=== PATIENT | female | born 1945 | race African-American/Black ===

== ENCOUNTER 2017-07-17 20:20 | Observation (INO) ==
[2017-07-17 21:31] LABS: Basophils # 0.1 10*3/uL (0.0-0.2); Basophils % 1.1 % (0.0-0.8); Eosinophils # 0.4 10*3/uL (0.0-0.87); Eosinophils % 3.4 % (0.00-10.9); Hematocrit 31.7 VOL% (35.7-47.0); Hemoglobin 10.4 GM/DL (12.0-16.0); Immature Granulocytes % 0.4 %; Immature Granulocytes Absolute 0.04 #; Lymphocytes # 2.5 10*3/uL (1.4-4.0); Lymphocytes % 24.4 % (21.3-54.2); Mean Corpuscular HGB Conc 32.8 GM/DL (32-36); Mean Corpuscular Hemoglobin 28 PG (27-34); Mean Corpuscular Volume 84.8 FL (87-102); Mean Platelet Volume 10.4 FL (9.6-12.0); Monocytes # 0.5 10*3/uL (0.11-0.8); Monocytes % 5.2 % (1.7-12.7); Neutrophils # 6.8 10*3/uL (1.4-7.4); Neutrophils % 65.5 % (38.7-73.9); Platelet Count 300 T/CUMM (130-400); Red Blood Count 3.74 MC/CUMM (3.8-5.5); Red Cell Distribution Width 13.9 % (9.3-17.3); White Blood Count 10.3 T/CUMM (4-12)
[2017-07-17 21:40] LABS: Apearance,Urine Slightly Hazy (Clear); Bacteria,Urine Occasional /HPF (Few); Bilirubin,Urine Negative (Negative); Blood, Urine Negative (Negative); Glucose,Urine (UA) Negative (Negative); Hyaline Casts,Urine 2 /LPF (0-3); Ketones,Urine Negative (Negative); Mucus,Urine Occasional /LPF (Occasional); Nitrite,Urine Negative (Negative); Protein,Urine 100 MG/DL; RBC,Urine 1 /HPF (0-4); Squamous Epithelial Cell,Urine Occasional /HPF (0-10); Urine Color Yellow (Yellow); Urine Specific Gravity 1.016 (1.001-1.035); Urine Urobilinogen < 2.0 EU/DL (0.2-1.0); WBC,Urine 1 /HPF (0-6)
[2017-07-17 22:14] LABS: Alanine Aminotransferase 37 U/L (13-56); Albumin 3.5 G/DL (3.4-5.0); Alkaline Phosphatase 69 U/L (45-117); Aspartate Amino Transferase 36 U/L (0-37); Blood Urea Nitrogen 13 MG/DL (7-18); Calcium 8.7 MG/DL (8.5-10.1); Glucose 116 MG/DL (74-106); Osmolality,Calculated 281.3 MOS/KG (273-304); Potassium 3.6 MMOL/L (3.5-5.1); Sodium 141 MMOL/L (136-145); Total Protein 7.6 G/DL (6.4-8.3)
[2017-07-17 22:16] LABS: Troponin I Only 0.302 NG/ML (0.00-0.045)
[2017-07-17] MEDS ORDERED: FUROSEMIDE 40 MG/4 ML VIAL IV STA (22:33)
[2017-07-17] MEDS ORDERED: FUROSEMIDE 100 MG/10 ML VIAL ONE (22:46)
[2017-07-18] MEDS ORDERED: DEXTROSE 50% 25 GM/50 ML VIAL IV PRN ×2 (00:59→18:40)
[2017-07-18] MEDS ORDERED: ONDANSETRON 4 MG/2 ML VIAL IV PRN (00:59)
[2017-07-18] MEDS ORDERED: GLUCAGON 1 MG VIAL IM PRN ×2 (00:59→18:40)
[2017-07-18] MEDS ORDERED: ACETAMINOPHEN 325 MG TABLET PO PRN (00:59)
[2017-07-18] MEDS: ENOXAPARIN 40 MG/0.4 ML SYRINGE SUBCUT SCH (02:40)
[2017-07-18 03:07] LABS: Calcium 8.6 MG/DL (8.5-10.1); Magnesium 1.6 MG/DL (1.8-2.4); Osmolality,Calculated 280.3 MOS/KG (273-304); Potassium 3.3 MMOL/L (3.5-5.1)
[2017-07-18 04:49] LABS: Basophils # 0.1 10*3/uL (0.0-0.2); Basophils % 0.9 % (0.0-0.8); Eosinophils # 0.3 10*3/uL (0.0-0.87); Eosinophils % 2.7 % (0.00-10.9); Hematocrit 30.1 VOL% (35.7-47.0); Hemoglobin 10.2 GM/DL (12.0-16.0); Immature Granulocytes % 0.4 %; Immature Granulocytes Absolute 0.04 #; Lymphocytes # 2.5 10*3/uL (1.4-4.0); Lymphocytes % 26.6 % (21.3-54.2); Mean Corpuscular HGB Conc 33.9 GM/DL (32-36); Mean Corpuscular Hemoglobin 28 PG (27-34); Mean Corpuscular Volume 83.4 FL (87-102); Mean Platelet Volume 11.1 FL (9.6-12.0); Monocytes # 0.5 10*3/uL (0.11-0.8); Monocytes % 5.4 % (1.7-12.7); Platelet Count 290 T/CUMM (130-400); Red Blood Count 3.61 MC/CUMM (3.8-5.5); Red Cell Distribution Width 13.8 % (9.3-17.3); White Blood Count 9.4 T/CUMM (4-12)
[2017-07-18 06:08] LABS: Sedimentation Rate-Westergren 57 MM/HR (0-30)
[2017-07-18 06:11] LABS: Folate > 24.0 NG/ML (5.4-24.0); Vitamin B12 590 PG/ML (211-911)
[2017-07-18 07:40] LABS: Hemoglobin A1 (Alkaline) 97.7 % (96.5-98.5); Hemoglobin A2 (Alkaline) 2.3 % (1.5-3.5)
[2017-07-18] MEDS ORDERED: ENOXAPARIN 40 MG/0.4 ML SYRINGE ONE (08:34)
[2017-07-18] MEDS ORDERED: POTASSIUM CHLORIDE 20 MEQ TABLET PO ONE ×2 (08:34→08:43)
[2017-07-18] MEDS ORDERED: FUROSEMIDE 40 MG/4 ML VIAL ONE (08:34)
[2017-07-18] MEDS ORDERED: ASPIRIN CHEW 81 MG TABLET PO ONE (08:34)
[2017-07-18] MEDS ORDERED: amLODIPine 5 MG TABLET ONE (08:35)
[2017-07-18] MEDS ORDERED: MAGNESIUM SULF RIDER 4 GM in PREMIX 1 EACH IV ONE (08:44)
[2017-07-18] MEDS ORDERED: metFORMIN 850 MG TABLET PO SCH (09:00)
[2017-07-18] MEDS: ASPIRIN EC 81 MG TABLET PO SCH (09:10)
[2017-07-18] MEDS: POTASSIUM CHLORIDE 20 MEQ TABLET PO SCH (09:11)
[2017-07-18] MEDS: amLODIPine 10 MG TABLET PO SCH (09:11)
[2017-07-18] MEDS: sitaGLIPtin 100 MG TABLET PO SCH (09:16)
[2017-07-18] MEDS: QUINAPRIL 20 MG TABLET PO SCH (09:16)
[2017-07-18] MEDS: FUROSEMIDE 40 MG/4 ML VIAL IV SCH ×2 (09:45→16:11)
[2017-07-18] MEDS: INSULIN LISPRO 100 UNIT/ML SUBCUT SCH ×4 (11:17→20:49)
[2017-07-18 11:41] LABS: % Iron Saturation 7.1 % (18-50)
[2017-07-18] MEDS ORDERED: diphenhydrAMINE CAP 25 MG CAPSULE PO ONE (12:07)
[2017-07-18] MEDS ORDERED: DIAZEPAM 5 MG TABLET PO ONE (12:07)
[2017-07-18] MEDS ORDERED: POTASSIUM CHLORIDE RIDER 10 MEQ in PREMIX 1 EACH IV PRN (12:07)
[2017-07-18] MEDS ORDERED: MAGNESIUM SULF RIDER 2 GM in PREMIX 1 EACH IV PRN (12:07)
[2017-07-18] MEDS ORDERED: SODIUM CHLORIDE 0.9% 1,000 ML IV SCH (12:30)
[2017-07-18 15:14] LABS: PT Patient Result 10.6 SECS
[2017-07-18] MEDS ORDERED: LIDOCAINE 1% 20 ML VIAL ONE (17:12)
[2017-07-18] MEDS ORDERED: VERAPAMIL 5 MG/2 ML VIAL ONE (17:12)
[2017-07-18] MEDS ORDERED: NITROGLYCERIN DRIP 50 MG/250 ML BOTTLE IV ONE (17:12)
[2017-07-18] MEDS ORDERED: MIDAZOLAM 2 MG/2 ML VIAL ONE (17:33)
[2017-07-18] MEDS ORDERED: ENOXAPARIN 30 MG/0.3 ML SYRINGE ONE (17:42)
[2017-07-18] MEDS: DEXTROSE 5% NACL 0.45% 1,000 ML IV SCH (18:06)
[2017-07-18] MEDS: CARVEDILOL 3.125 MG TABLET PO SCH (20:48)
[2017-07-18] MEDS ORDERED: ATORVASTATIN 10 MG TABLET PO SCH (21:00)
[2017-07-19] MEDS: ENOXAPARIN 40 MG/0.4 ML SYRINGE SUBCUT SCH (02:13)
[2017-07-19 06:32] LABS: Basophils # 0.1 10*3/uL (0.0-0.2); Eosinophils # 0.5 10*3/uL (0.0-0.87); Eosinophils % 7.1 % (0.00-10.9); Hematocrit 30.4 VOL% (35.7-47.0); Immature Granulocytes % 0.3 %; Immature Granulocytes Absolute 0.02 #; Lymphocytes # 2.4 10*3/uL (1.4-4.0); Lymphocytes % 33.2 % (21.3-54.2); Mean Corpuscular HGB Conc 32.9 GM/DL (32-36); Mean Corpuscular Hemoglobin 28 PG (27-34); Mean Corpuscular Volume 84.2 FL (87-102); Monocytes # 0.6 10*3/uL (0.11-0.8); Monocytes % 7.9 % (1.7-12.7); Neutrophils # 3.7 10*3/uL (1.4-7.4); Neutrophils % 50.5 % (38.7-73.9); Platelet Count 291 T/CUMM (130-400); Red Blood Count 3.61 MC/CUMM (3.8-5.5); Red Cell Distribution Width 13.9 % (9.3-17.3); White Blood Count 7.4 T/CUMM (4-12)
[2017-07-19 07:14] LABS: Calcium 8.3 MG/DL (8.5-10.1); Magnesium 2.5 MG/DL (1.8-2.4); Osmolality,Calculated 277.5 MOS/KG (273-304); Potassium 3.7 MMOL/L (3.5-5.1)
[2017-07-19 07:27] LABS: Risk Ratio 2.54; VLDL CHOLESTEROL 21.6 MG/DL
[2017-07-19] MEDS: POTASSIUM CHLORIDE 20 MEQ TABLET PO SCH (08:46)
[2017-07-19] MEDS: CARVEDILOL 3.125 MG TABLET PO SCH (08:47)
[2017-07-19] MEDS: ASPIRIN EC 81 MG TABLET PO SCH (08:47)
[2017-07-19] MEDS: sitaGLIPtin 100 MG TABLET PO SCH (08:47)
[2017-07-19] MEDS: FUROSEMIDE 40 MG/4 ML VIAL IV SCH (08:47)
[2017-07-19] MEDS: INSULIN LISPRO 100 UNIT/ML SUBCUT SCH ×2 (08:47→11:50)
[2017-07-19] MEDS: amLODIPine 10 MG TABLET PO SCH (08:47)
[2017-07-19] MEDS: QUINAPRIL 20 MG TABLET PO SCH (08:47)
[2017-07-19] MEDS: DEXTROSE 5% NACL 0.45% 1,000 ML IV SCH (08:48)
[2017-07-19 12:19] VITALS: BP 130/48
[2017-07-19] MEDS ORDERED: FUROSEMIDE 40 MG TABLET PO SCH (16:00)
== END 2017-07-19 16:42 | disposition home or self-care (01) ==
LOC: N.EDINP 20:20 → N.ED 20:20 → SUATTDRO 07-18 00:45 → N.EDINP 07-18 13:48 → N.5E 07-18 13:52
PROVIDERS: ADMIT Internal Medicine; ATTEND Internal Medicine
PROC: CLCCHCL (ICD-10-PCS; 2017-07-18 16:45)

== ENCOUNTER 2017-12-11 18:41 | Inpatient (IN) ==
[2017-12-11 20:22] LABS: Basophils # 0.1 10*3/uL (0.0-0.2); Basophils % 0.9 % (0.0-0.8); Eosinophils # 0.6 10*3/uL (0.0-0.87); Eosinophils % 6.6 % (0.00-10.9); Hematocrit 32.4 VOL% (35.7-47.0); Hemoglobin 10.3 GM/DL (12.0-16.0); Immature Granulocytes % 0.5 %; Immature Granulocytes Absolute 0.04 #; Lymphocytes # 1.2 10*3/uL (1.4-4.0); Mean Corpuscular HGB Conc 31.8 GM/DL (32-36); Mean Corpuscular Hemoglobin 27 PG (27-34); Mean Corpuscular Volume 84.2 FL (87-102); Mean Platelet Volume 10.9 FL (9.6-12.0); Monocytes # 0.5 10*3/uL (0.11-0.8); Monocytes % 5.9 % (1.7-12.7); Neutrophils # 6.1 10*3/uL (1.4-7.4); Neutrophils % 72.1 % (38.7-73.9); Platelet Count 281 T/CUMM (130-400); Red Blood Count 3.85 MC/CUMM (3.8-5.5); Red Cell Distribution Width 14.9 % (9.3-17.3); White Blood Count 8.5 T/CUMM (4-12)
[2017-12-11 20:49] LABS: Albumin 3.8 G/DL (3.4-5.0); Bilirubin,Total 0.9 MG/DL (0.2-1.0); Calcium 8.4 MG/DL (8.5-10.1); Osmolality,Calculated 286.1 MOS/KG (273-304); Potassium 4.1 MMOL/L (3.5-5.1); Total Protein 7.1 G/DL (6.4-8.3)
[2017-12-11 20:51] LABS: Troponin I Only 0.418 NG/ML (0.00-0.045)
[2017-12-11] MEDS ORDERED: ASPIRIN EC 325 MG TABLET PO STA (21:53)
[2017-12-11] MEDS ORDERED: FUROSEMIDE 40 MG/4 ML VIAL IV STA (21:53)
[2017-12-11] MEDS ORDERED: FUROSEMIDE 20 MG/2 ML VIAL ONE (22:00)
[2017-12-11] MEDS ORDERED: ASPIRIN 325 MG TABLET ONE (22:00)
[2017-12-12] MEDS ORDERED: MORPHINE 2 MG/1 ML SYRINGE IV PRN (02:37)
[2017-12-12] MEDS ORDERED: ONDANSETRON 4 MG/2 ML VIAL IV PRN (02:37)
[2017-12-12] MEDS ORDERED: DEXTROSE 50% 25 GM/50 ML VIAL IV PRN (02:37)
[2017-12-12] MEDS ORDERED: GLUCAGON 1 MG VIAL IM PRN (02:37)
[2017-12-12] MEDS ORDERED: ACETAMINOPHEN 325 MG TABLET PO PRN (02:37)
[2017-12-12 05:54] LABS: Basophils # 0.1 10*3/uL (0.0-0.2); Basophils % 0.9 % (0.0-0.8); Eosinophils # 0.6 10*3/uL (0.0-0.87); Hematocrit 31.4 VOL% (35.7-47.0); Hemoglobin 9.9 GM/DL (12.0-16.0); Immature Granulocytes % 0.4 %; Immature Granulocytes Absolute 0.03 #; Lymphocytes # 1.2 10*3/uL (1.4-4.0); Lymphocytes % 15.1 % (21.3-54.2); Mean Corpuscular HGB Conc 31.5 GM/DL (32-36); Mean Corpuscular Hemoglobin 26 PG (27-34); Mean Corpuscular Volume 83.5 FL (87-102); Mean Platelet Volume 11.2 FL (9.6-12.0); Monocytes # 0.6 10*3/uL (0.11-0.8); Neutrophils # 5.6 10*3/uL (1.4-7.4); Neutrophils % 69.6 % (38.7-73.9); Platelet Count 269 T/CUMM (130-400); Red Blood Count 3.76 MC/CUMM (3.8-5.5); Red Cell Distribution Width 14.8 % (9.3-17.3); White Blood Count 8.1 T/CUMM (4-12)
[2017-12-12 06:40] LABS: Calcium 8.9 MG/DL (8.5-10.1); Osmolality,Calculated 281.3 MOS/KG (273-304)
[2017-12-12] MEDS: INSULIN LISPRO 100 UNIT/ML SUBCUT SCH ×4 (08:05→21:40)
[2017-12-12] MEDS: FUROSEMIDE 40 MG/4 ML VIAL IV SCH ×2 (08:33→17:35)
[2017-12-12] MEDS: PANTOPRAZOLE 40 MG TABLET PO SCH (08:33)
[2017-12-12] MEDS: ENOXAPARIN 40 MG/0.4 ML SYRINGE SUBCUT SCH (08:33)
[2017-12-12] MEDS: SPIRONOLACTONE 50 MG TABLET PO SCH (15:07)
[2017-12-12] MEDS: ASCORBIC ACID 500 MG TABLET PO SCH ×2 (15:07→21:41)
[2017-12-12] MEDS ORDERED: FUROSEMIDE 20 MG/2 ML VIAL ONE (17:06)
[2017-12-12] MEDS ORDERED: ATORVASTATIN 10 MG TABLET PO SCH (21:00)
[2017-12-12] MEDS: CARVEDILOL 6.25 MG TABLET PO SCH (21:40)
[2017-12-13 05:28] LABS: Basophils # 0.1 10*3/uL (0.0-0.2); Basophils % 0.9 % (0.0-0.8); Eosinophils # 0.4 10*3/uL (0.0-0.87); Eosinophils % 7.3 % (0.00-10.9); Hematocrit 30.8 VOL% (35.7-47.0); Hemoglobin 10.3 GM/DL (12.0-16.0); Immature Granulocytes % 0.5 %; Immature Granulocytes Absolute 0.03 #; Lymphocytes # 1.1 10*3/uL (1.4-4.0); Lymphocytes % 18.5 % (21.3-54.2); Mean Corpuscular HGB Conc 33.4 GM/DL (32-36); Mean Corpuscular Hemoglobin 27 PG (27-34); Mean Platelet Volume 11.4 FL (9.6-12.0); Monocytes # 0.6 10*3/uL (0.11-0.8); Neutrophils # 3.6 10*3/uL (1.4-7.4); Neutrophils % 62.8 % (38.7-73.9); Platelet Count 273 T/CUMM (130-400); Red Blood Count 3.85 MC/CUMM (3.8-5.5); Red Cell Distribution Width 14.9 % (9.3-17.3); White Blood Count 5.8 T/CUMM (4-12)
[2017-12-13 06:03] LABS: Calcium 8.8 MG/DL (8.5-10.1); Osmolality,Calculated 280.5 MOS/KG (273-304)
[2017-12-13] MEDS: INSULIN LISPRO 100 UNIT/ML SUBCUT SCH ×2 (07:15→13:04)
[2017-12-13] MEDS ORDERED: POTASSIUM CHLORIDE 20 MEQ TABLET PO SCH (09:00)
[2017-12-13] MEDS ORDERED: ASPIRIN EC 81 MG TABLET PO SCH (09:00)
[2017-12-13] MEDS ORDERED: QUINAPRIL 20 MG TABLET PO SCH (09:00)
[2017-12-13] MEDS: PANTOPRAZOLE 40 MG TABLET PO SCH (09:27)
[2017-12-13] MEDS: SPIRONOLACTONE 50 MG TABLET PO SCH (09:27)
[2017-12-13] MEDS: FUROSEMIDE 40 MG/4 ML VIAL IV SCH (09:27)
[2017-12-13] MEDS: ASCORBIC ACID 500 MG TABLET PO SCH (09:27)
[2017-12-13] MEDS: CARVEDILOL 6.25 MG TABLET PO SCH (09:27)
[2017-12-13] MEDS: ENOXAPARIN 40 MG/0.4 ML SYRINGE SUBCUT SCH (09:27)
[2017-12-13 14:26] VITALS: BP 105/73
== END 2017-12-13 14:44 | disposition home or self-care (01) | DRG 293 ==
LOC: N.ED 18:41 → N.EDINP 12-12 02:34 → N.CC 12-12 03:13
PROVIDERS: ADMIT Internal Medicine; ATTEND Internal Medicine

== ENCOUNTER 2018-01-22 08:32 | Inpatient (IN) ==
[2018-01-22 10:58] LABS: Basophils # 0.1 10*3/uL (0.0-0.2); Basophils % 1.5 % (0.0-0.8); Eosinophils # 0.4 10*3/uL (0.0-0.87); Eosinophils % 7.5 % (0.00-10.9); Hematocrit 35.9 VOL% (35.7-47.0); Immature Granulocytes % 0.9 %; Immature Granulocytes Absolute 0.05 #; Lymphocytes # 1.5 10*3/uL (1.4-4.0); Lymphocytes % 28.2 % (21.3-54.2); Mean Corpuscular HGB Conc 30.6 GM/DL (32-36); Mean Corpuscular Hemoglobin 26 PG (27-34); Mean Corpuscular Volume 85.5 FL (87-102); Mean Platelet Volume 10.3 FL (9.6-12.0); Monocytes # 0.4 10*3/uL (0.11-0.8); Neutrophils % 54.9 % (38.7-73.9); Platelet Count 276 T/CUMM (130-400); Red Cell Distribution Width 15.7 % (9.3-17.3); White Blood Count 5.5 T/CUMM (4-12)
[2018-01-22 11:52] LABS: Alanine Aminotransferase 28 U/L (13-56); Albumin 3.5 G/DL (3.4-5.0); Alkaline Phosphatase 76 U/L (45-117); Aspartate Amino Transferase 32 U/L (0-37); Bilirubin,Total < 0.39 MG/DL (0.2-1.0); Blood Urea Nitrogen 10 MG/DL (7-18); Calcium 8.9 MG/DL (8.5-10.1); Glucose 90 MG/DL (74-106); Osmolality,Calculated 273.7 MOS/KG (273-304); Sodium 138 MMOL/L (136-145); Total Protein 7.7 G/DL (6.4-8.3)
[2018-01-22 11:53] LABS: Potassium 7.8 MMOL/L (3.5-5.1)
[2018-01-22 12:01] LABS: Apearance,Urine CLEAR (Clear); Bacteria,Urine Occasional /HPF (Few); Bilirubin,Urine Negative (Negative); Blood, Urine Negative (Negative); Glucose,Urine (UA) Negative (Negative); Hyaline Casts,Urine 15 /LPF (0-3); Ketones,Urine Negative (Negative); Mucus,Urine Occasional /LPF (Occasional); Nitrite,Urine Negative (Negative); Protein,Urine Negative; RBC,Urine <1 /HPF (0-4); Squamous Epithelial Cell,Urine Occasional /HPF (0-10); Urine Color Yellow (Yellow); Urine Specific Gravity 1.013 (1.001-1.035); Urine Urobilinogen < 2.0 EU/DL (0.2-1.0); WBC,Urine 1 /HPF (0-6)
[2018-01-22 12:18] LABS: Troponin I Only 0.189 NG/ML (0.00-0.045)
[2018-01-22] MEDS ORDERED: DEXTROSE 50% 25 GM/50 ML VIAL IV STA (12:51)
[2018-01-22] MEDS ORDERED: INSULIN REGULAR 100 UNIT/ML IV STA (12:51)
[2018-01-22] MEDS ORDERED: DEXTROSE 50% 25 GM/50 ML VIAL IV ONE (13:02)
[2018-01-22] MEDS ORDERED: INSULIN REGULAR 100 UNIT/ML ONE (13:04)
[2018-01-22] MEDS ORDERED: CALCIUM GLUCONATE 1,000 MG in SODIUM CHLORIDE 0.9% 100 ML IV ONE ×2 (13:09→15:00)
[2018-01-22] MEDS ORDERED: ONDANSETRON 4 MG/2 ML VIAL IV PRN (13:22)
[2018-01-22] MEDS ORDERED: ACETAMINOPHEN 325 MG TABLET PO PRN (13:22)
[2018-01-22] MEDS ORDERED: GLUCAGON 1 MG VIAL IM PRN (13:25)
[2018-01-22] MEDS: ENOXAPARIN 40 MG/0.4 ML SYRINGE SUBCUT SCH (16:36)
[2018-01-22] MEDS: FUROSEMIDE 40 MG TABLET PO SCH (16:36)
[2018-01-22] MEDS: INSULIN LISPRO 100 UNIT/ML SUBCUT SCH ×2 (16:44→21:28)
[2018-01-22 18:20] LABS: Calcium 9.1 MG/DL (8.5-10.1); Osmolality,Calculated 270.8 MOS/KG (273-304)
[2018-01-22 18:22] LABS: Potassium 7.4 MMOL/L (3.5-5.1)
[2018-01-22] MEDS: ATORVASTATIN 20 MG TABLET PO SCH (21:51)
[2018-01-22] MEDS: ASCORBIC ACID 500 MG TABLET PO SCH (21:51)
[2018-01-22] MEDS: CARVEDILOL 6.25 MG TABLET PO SCH (21:51)
[2018-01-23 05:37] LABS: Calcium 8.6 MG/DL (8.5-10.1); Osmolality,Calculated 275.7 MOS/KG (273-304)
[2018-01-23 05:40] LABS: Potassium 6.9 MMOL/L (3.5-5.1)
[2018-01-23] MEDS: FUROSEMIDE 40 MG TABLET PO SCH ×2 (08:43→16:35)
[2018-01-23] MEDS: CARVEDILOL 6.25 MG TABLET PO SCH ×2 (08:43→16:36)
[2018-01-23] MEDS: ASCORBIC ACID 500 MG TABLET PO SCH ×2 (08:43→20:55)
[2018-01-23] MEDS: ASPIRIN EC 81 MG TABLET PO SCH (08:43)
[2018-01-23] MEDS: SODIUM POLYSTYRENE SULFATE 15 GM/60 ML BOTTLE PO SCH ×3 (08:43→20:55)
[2018-01-23] MEDS: INSULIN LISPRO 100 UNIT/ML SUBCUT SCH ×4 (08:46→22:51)
[2018-01-23] MEDS: ENOXAPARIN 40 MG/0.4 ML SYRINGE SUBCUT SCH (16:36)
[2018-01-23 16:45] LABS: Calcium 8.5 MG/DL (8.5-10.1); Osmolality,Calculated 275.8 MOS/KG (273-304)
[2018-01-23 16:47] LABS: Potassium 6.1 MMOL/L (3.5-5.1)
[2018-01-23] MEDS: ATORVASTATIN 20 MG TABLET PO SCH (20:55)
[2018-01-24] MEDS: SODIUM POLYSTYRENE SULFATE 15 GM/60 ML BOTTLE PO SCH ×3 (00:31→15:16)
[2018-01-24 05:23] LABS: Calcium 8.7 MG/DL (8.5-10.1); Osmolality,Calculated 278.7 MOS/KG (273-304); Potassium 5.7 MMOL/L (3.5-5.1)
[2018-01-24] MEDS: INSULIN LISPRO 100 UNIT/ML SUBCUT SCH ×2 (09:39→12:00)
[2018-01-24] MEDS: FUROSEMIDE 40 MG TABLET PO SCH (09:49)
[2018-01-24] MEDS: CARVEDILOL 6.25 MG TABLET PO SCH (09:49)
[2018-01-24] MEDS: ASCORBIC ACID 500 MG TABLET PO SCH (09:49)
[2018-01-24] MEDS: ASPIRIN EC 81 MG TABLET PO SCH (09:49)
[2018-01-24 11:43] VITALS: BP 114/71
[2018-01-24 13:39] LABS: Calcium 8.8 MG/DL (8.5-10.1); Osmolality,Calculated 274.8 MOS/KG (273-304); Potassium 5.1 MMOL/L (3.5-5.1)
[2018-01-24] MEDS: ENOXAPARIN 40 MG/0.4 ML SYRINGE SUBCUT SCH (15:17)
== END 2018-01-24 16:16 | disposition home or self-care (01) | DRG 641 ==
LOC: N.ED 08:32 → N.EDINP 12:14 → N.TELES 13:52
PROVIDERS: ADMIT Internal Medicine; ATTEND Internal Medicine

== ENCOUNTER 2018-03-21 18:41 | Inpatient (IN) ==
[2018-03-21] MEDS ORDERED: ETOMIDATE 20 MG/10 ML VIAL IV ONE (18:52)
[2018-03-21] MEDS ORDERED: ROCURONIUM 100 MG/10 ML VIAL IV ONE (18:53)
[2018-03-21] MEDS ORDERED: ROCURONIUM 100 MG/10 ML VIAL IV STA (18:58)
[2018-03-21] MEDS ORDERED: ETOMIDATE 20 MG/10 ML VIAL IV STA (18:58)
[2018-03-21 19:09] LABS: Basophils # 0.1 10*3/uL (0.0-0.2); Basophils % 1.1 % (0.0-0.8); Eosinophils # 0.3 10*3/uL (0.0-0.87); Eosinophils % 3.2 % (0.00-10.9); Hematocrit 35.5 VOL% (35.7-47.0); Hemoglobin 11.1 GM/DL (12.0-16.0); Immature Granulocytes % 0.6 %; Immature Granulocytes Absolute 0.06 #; Lymphocytes # 4.5 10*3/uL (1.4-4.0); Lymphocytes % 43.3 % (21.3-54.2); Mean Corpuscular HGB Conc 31.3 GM/DL (32-36); Mean Corpuscular Hemoglobin 26 PG (27-34); Mean Corpuscular Volume 83.7 FL (87-102); Monocytes # 0.4 10*3/uL (0.11-0.8); Monocytes % 3.9 % (1.7-12.7); Neutrophils % 47.9 % (38.7-73.9); Platelet Count 292 T/CUMM (130-400); Red Blood Count 4.24 MC/CUMM (3.8-5.5); Red Cell Distribution Width 15.4 % (9.3-17.3); White Blood Count 10.4 T/CUMM (4-12)
[2018-03-21] MEDS ORDERED: CEFEPIME 2,000 MG in SODIUM CHLORIDE 0.9% 100 ML IV STA (19:15)
[2018-03-21] MEDS ORDERED: FUROSEMIDE 40 MG/4 ML VIAL IV STA (19:15)
[2018-03-21] MEDS ORDERED: VANCOMYCIN INJ 1,000 MG in SODIUM CHLORIDE 0.9% 250 ML IV STA (19:16)
[2018-03-21 19:25] LABS: Alanine Aminotransferase 37 U/L (13-56); Albumin 3.5 G/DL (3.4-5.0); Alkaline Phosphatase 102 U/L (45-117); Aspartate Amino Transferase 75 U/L (0-37); Bilirubin,Total < 0.39 MG/DL (0.2-1.0); Blood Urea Nitrogen 12 MG/DL (7-18); Calcium 8.1 MG/DL (8.5-10.1); Glucose 478 MG/DL (74-106); Osmolality,Calculated 293.8 MOS/KG (273-304); Potassium 3.9 MMOL/L (3.5-5.1); Sodium 137 MMOL/L (136-145); Total Protein 7.8 G/DL (6.4-8.3)
[2018-03-21 19:28] LABS: ABG Base Excess -6.5 MMOL/L (-2.5-2.5); ABG HCO3 19.1 MMOL/L (20-26); ABG PCO2 45.6 MM HG (35-48); ABG PH 7.259 (7.35-7.45); Allen Test Positive; Pt O2 Delivery Device Ventilator
[2018-03-21 19:33] LABS: Apearance,Urine CLEAR (Clear); Bilirubin,Urine Negative (Negative); Blood, Urine Negative (Negative); Glucose,Urine (UA) >=500 mg/dL (Negative); Ketones,Urine Negative (Negative); Nitrite,Urine Negative (Negative); Protein,Urine >=500 MG/DL; RBC,Urine 14 /HPF (0-4); Urine Color Straw (Yellow); Urine Specific Gravity 1.011 (1.001-1.035); Urine Urobilinogen < 2.0 EU/DL (0.2-1.0); WBC,Urine 33 /HPF (0-6)
[2018-03-21] MEDS: PROPOFOL 1,000 MG/100 ML BOTTLE IV SCH (20:00)
[2018-03-21] MEDS ORDERED: MAGNESIUM SULF RIDER 2 GM in PREMIX 1 EACH IV PRN (21:54)
[2018-03-21] MEDS ORDERED: MAGNESIUM SULF RIDER 4 GM in PREMIX 1 EACH IV PRN (21:54)
[2018-03-21] MEDS ORDERED: ALBUTEROL 2.5 MG/3 ML NEB RESP TX PRN (21:54)
[2018-03-21] MEDS ORDERED: DEXTROSE 50% 25 GM/50 ML VIAL IV PRN (21:54)
[2018-03-21] MEDS ORDERED: GLUCAGON 1 MG VIAL IM PRN (21:54)
[2018-03-21] MEDS ORDERED: ONDANSETRON 4 MG/2 ML VIAL IV PRN (21:54)
[2018-03-21] MEDS ORDERED: INSULIN REGULAR 100 UNIT/ML SUBCUT SCH (22:00)
[2018-03-22] MEDS: LEVOFLOXACIN INJ 750 MG in PREMIX 1 EACH IV SCH ×2 (00:07→22:53)
[2018-03-22] MEDS: INSULIN REGULAR 100 UNIT/ML SUBCUT SCH ×7 (00:07→23:49)
[2018-03-22] MEDS: ALBUTEROL/IPRATROPIUM 3 ML NEB RESP TX SCH ×4 (00:57→19:11)
[2018-03-22] MEDS: PROPOFOL 1,000 MG/100 ML BOTTLE IV SCH ×4 (03:18→22:52)
[2018-03-22 03:30] LABS: ABG Base Excess 0.9 MMOL/L (-2.5-2.5); ABG HCO3 25.2 MMOL/L (20-26); ABG Oxygen Saturation 99.8 % (95-100); ABG PCO2 33.6 MM HG (35-48); ABG PH 7.465 (7.35-7.45); ABG TCO2 21.8 MMOL/L (23-27); Allen Test Positive; Pt O2 Delivery Device Ventilator
[2018-03-22 06:12] LABS: Basophils # 0.1 10*3/uL (0.0-0.2); Basophils % 0.5 % (0.0-0.8); Eosinophils % 0.3 % (0.00-10.9); Hematocrit 31.2 VOL% (35.7-47.0); Hemoglobin 10.2 GM/DL (12.0-16.0); Immature Granulocytes % 0.7 %; Immature Granulocytes Absolute 0.07 #; Lymphocytes # 0.8 10*3/uL (1.4-4.0); Lymphocytes % 7.7 % (21.3-54.2); Mean Corpuscular HGB Conc 32.7 GM/DL (32-36); Mean Corpuscular Hemoglobin 27 PG (27-34); Mean Platelet Volume 11.3 FL (9.6-12.0); Monocytes # 0.7 10*3/uL (0.11-0.8); Monocytes % 6.3 % (1.7-12.7); Neutrophils # 8.8 10*3/uL (1.4-7.4); Neutrophils % 84.5 % (38.7-73.9); Platelet Count 256 T/CUMM (130-400); Red Blood Count 3.85 MC/CUMM (3.8-5.5); Red Cell Distribution Width 15.5 % (9.3-17.3); White Blood Count 10.5 T/CUMM (4-12)
[2018-03-22 06:35] LABS: Albumin 3.4 G/DL (3.4-5.0); Bilirubin,Total 0.8 MG/DL (0.2-1.0); Calcium 8.6 MG/DL (8.5-10.1); Osmolality,Calculated 285.5 MOS/KG (273-304); Potassium 4.1 MMOL/L (3.5-5.1); Total Protein 7.2 G/DL (6.4-8.3)
[2018-03-22] MEDS: ENOXAPARIN 40 MG/0.4 ML SYRINGE SUBCUT SCH (08:41)
[2018-03-22] MEDS: FUROSEMIDE 40 MG/4 ML VIAL IV SCH ×2 (08:41→16:51)
[2018-03-22] MEDS: LANSOPRAZOLE ODT 30 MG TABLET NG SCH (08:42)
[2018-03-23] MEDS: ALBUTEROL/IPRATROPIUM 3 ML NEB RESP TX SCH ×4 (00:45→19:38)
[2018-03-23] MEDS: INSULIN REGULAR 100 UNIT/ML SUBCUT SCH ×5 (03:44→21:54)
[2018-03-23 04:35] LABS: ABG Base Excess 4.4 MMOL/L (-2.5-2.5); ABG HCO3 28.3 MMOL/L (20-26); ABG Oxygen Saturation 99.6 % (95-100); ABG PCO2 37.6 MM HG (35-48); ABG PH 7.479 (7.35-7.45); ABG TCO2 24.8 MMOL/L (23-27); Pt O2 Delivery Device Ventilator
[2018-03-23] MEDS: PROPOFOL 1,000 MG/100 ML BOTTLE IV SCH (05:06)
[2018-03-23 07:11] LABS: Prealbumin 18.9 MG/DL (20-40)
[2018-03-23 08:02] LABS: ABG Base Excess 3.8 MMOL/L (-2.5-2.5); ABG HCO3 27.8 MMOL/L (20-26); ABG Oxygen Saturation 99.4 % (95-100); ABG PCO2 42.8 MM HG (35-48); ABG PH 7.432 (7.35-7.45); ABG TCO2 25.3 MMOL/L (23-27); Allen Test Positive; Pt O2 Delivery Device Ventilator
[2018-03-23] MEDS ORDERED: cloNIDine 0.1 MG TABLET PO PRN (08:13)
[2018-03-23] MEDS: FUROSEMIDE 40 MG/4 ML VIAL IV SCH ×2 (08:27→16:01)
[2018-03-23] MEDS: LANSOPRAZOLE ODT 30 MG TABLET NG SCH (08:27)
[2018-03-23] MEDS: ENOXAPARIN 40 MG/0.4 ML SYRINGE SUBCUT SCH (08:27)
[2018-03-23] MEDS: ISOSORBIDE MONONITRATE 30 MG TABLET PO SCH (09:57)
[2018-03-23] MEDS: ATORVASTATIN 20 MG TABLET PO SCH (09:57)
[2018-03-23] MEDS: QUINAPRIL 20 MG TABLET PO SCH (09:58)
[2018-03-23] MEDS: SPIRONOLACTONE 25 MG TABLET PO SCH ×2 (09:58→20:33)
[2018-03-23] MEDS: CARVEDILOL 6.25 MG TABLET PO SCH ×2 (09:58→17:27)
[2018-03-23] MEDS: hydrALAZINE 10 MG TABLET PO SCH ×3 (10:42→20:34)
[2018-03-23] MEDS ORDERED: PHENOL 1.4% THROAT SPRAY 177 ML BOTTLE PO PRN (12:36)
[2018-03-23] MEDS: LEVOFLOXACIN INJ 750 MG in PREMIX 1 EACH IV SCH (22:37)
[2018-03-24] MEDS: ALBUTEROL/IPRATROPIUM 3 ML NEB RESP TX SCH ×2 (01:54→06:59)
[2018-03-24] MEDS: INSULIN REGULAR 100 UNIT/ML SUBCUT SCH ×4 (03:05→13:47)
[2018-03-24 03:47] LABS: Basophils # 0.1 10*3/uL (0.0-0.2); Basophils % 0.8 % (0.0-0.8); Eosinophils # 0.4 10*3/uL (0.0-0.87); Eosinophils % 4.3 % (0.00-10.9); Hematocrit 35.1 VOL% (35.7-47.0); Hemoglobin 11.5 GM/DL (12.0-16.0); Immature Granulocytes % 0.8 %; Immature Granulocytes Absolute 0.07 #; Lymphocytes # 2.5 10*3/uL (1.4-4.0); Lymphocytes % 27.4 % (21.3-54.2); Mean Corpuscular HGB Conc 32.8 GM/DL (32-36); Mean Corpuscular Hemoglobin 26 PG (27-34); Mean Corpuscular Volume 79.4 FL (87-102); Mean Platelet Volume 11.1 FL (9.6-12.0); Monocytes # 0.7 10*3/uL (0.11-0.8); Monocytes % 7.7 % (1.7-12.7); Neutrophils # 5.4 10*3/uL (1.4-7.4); Platelet Count 254 T/CUMM (130-400); Red Blood Count 4.42 MC/CUMM (3.8-5.5); Red Cell Distribution Width 15.8 % (9.3-17.3); White Blood Count 9.2 T/CUMM (4-12)
[2018-03-24 04:08] LABS: Albumin 2.9 G/DL (3.4-5.0); Bilirubin,Total 0.8 MG/DL (0.2-1.0); Calcium 8.8 MG/DL (8.5-10.1); Osmolality,Calculated 286.7 MOS/KG (273-304); Potassium 3.7 MMOL/L (3.5-5.1); Total Protein 7.3 G/DL (6.4-8.3)
[2018-03-24] MEDS ORDERED: FUROSEMIDE 40 MG TABLET PO SCH (09:00)
[2018-03-24] MEDS: ENOXAPARIN 40 MG/0.4 ML SYRINGE SUBCUT SCH (09:01)
[2018-03-24] MEDS: ATORVASTATIN 20 MG TABLET PO SCH (09:01)
[2018-03-24] MEDS: hydrALAZINE 10 MG TABLET PO SCH (09:02)
[2018-03-24] MEDS: ISOSORBIDE MONONITRATE 30 MG TABLET PO SCH (09:02)
[2018-03-24] MEDS: CARVEDILOL 6.25 MG TABLET PO SCH (09:02)
[2018-03-24] MEDS: LANSOPRAZOLE ODT 30 MG TABLET NG SCH (09:02)
[2018-03-24] MEDS: SPIRONOLACTONE 25 MG TABLET PO SCH (09:02)
[2018-03-24] MEDS: QUINAPRIL 20 MG TABLET PO SCH (09:10)
[2018-03-24 13:18] VITALS: BP 106/59
== END 2018-03-24 13:28 | disposition home or self-care (01) | DRG 208 ==
LOC: N.ED 18:41 → N.EDINP 21:54 → SUATTDRO 21:54 → N.ICU 22:45 → N.4E 03-23 17:51
PROVIDERS: ADMIT Internal Medicine; ATTEND Internal Medicine Nephrology

== ENCOUNTER 2018-10-21 03:04 | Inpatient (IN) ==
[2018-10-21] MEDS ORDERED: hydrALAZINE 20 MG/1 ML VIAL IV STA (04:28)
[2018-10-21] MEDS ORDERED: LABETALOL 20 MG/4 ML SYRINGE IV STA (04:29)
[2018-10-21] MEDS ORDERED: FUROSEMIDE 40 MG/4 ML VIAL IV STA (04:51)
[2018-10-21 05:02] LABS: Basophils # 0.1 10*3/uL (0.0-0.2); Basophils % 1.1 % (0.0-0.8); Eosinophils # 0.4 10*3/uL (0.0-0.87); Eosinophils % 3.5 % (0.00-10.9); Hematocrit 34.5 VOL% (35.7-47.0); Hemoglobin 10.6 GM/DL (12.0-16.0); Immature Granulocytes % 0.5 %; Immature Granulocytes Absolute 0.05 #; Lymphocytes # 3.9 10*3/uL (1.4-4.0); Lymphocytes % 35.1 % (21.3-54.2); Mean Corpuscular HGB Conc 30.7 GM/DL (32-36); Mean Corpuscular Hemoglobin 26 PG (27-34); Mean Platelet Volume 11.5 FL (9.6-12.0); Monocytes # 0.6 10*3/uL (0.11-0.8); Monocytes % 5.2 % (1.7-12.7); Neutrophils % 54.6 % (38.7-73.9); Platelet Count 360 T/CUMM (130-400); Red Blood Count 4.01 MC/CUMM (3.8-5.5); Red Cell Distribution Width 13.9 % (9.3-17.3)
[2018-10-21 05:13] LABS: Alanine Aminotransferase 53 U/L (13-56); Albumin 3.5 G/DL (3.4-5.0); Alkaline Phosphatase 98 U/L (45-117); Aspartate Amino Transferase 80 U/L (0-37); Bilirubin,Total < 0.39 MG/DL (0.2-1.0); Blood Urea Nitrogen 16 MG/DL (7-18); Calcium 8.4 MG/DL (8.5-10.1); Glucose 294 MG/DL (74-106); Osmolality,Calculated 290.4 MOS/KG (273-304); Potassium 3.6 MMOL/L (3.5-5.1); Sodium 140 MMOL/L (136-145); Total Protein 7.5 G/DL (6.4-8.3)
[2018-10-21 05:44] LABS: ABG Base Excess -1.6 MMOL/L (-2.5-2.5); ABG Oxygen Saturation 97.6 % (95-100); ABG PCO2 51.7 MM HG (35-48); ABG TCO2 23.1 MMOL/L (23-27)
[2018-10-21] MEDS ORDERED: hydrALAZINE 25 MG TABLET PO SCH (09:00)
[2018-10-21] MEDS: SACUBITRIL/VALSARTAN 49-51 MG TABLET PO SCH (09:24)
[2018-10-21] MEDS: ATORVASTATIN 10 MG TABLET PO SCH (09:24)
[2018-10-21] MEDS: ISOSORBIDE MONONITRATE 30 MG TABLET PO SCH (09:24)
[2018-10-21] MEDS: CARVEDILOL 6.25 MG TABLET PO SCH ×2 (09:24→21:11)
[2018-10-21] MEDS: ASPIRIN EC 81 MG TABLET PO SCH (09:24)
[2018-10-21] MEDS: ENOXAPARIN 40 MG/0.4 ML SYRINGE SUBCUT SCH (09:25)
[2018-10-21] MEDS: FUROSEMIDE 40 MG/4 ML VIAL IV SCH ×2 (09:25→16:09)
[2018-10-21] MEDS: INSULIN LISPRO 100 UNIT/ML SUBCUT SCH ×3 (12:41→21:11)
[2018-10-21 16:55] LABS: Apearance,Urine CLEAR (Clear); Bilirubin,Urine Negative (Negative); Blood, Urine Moderate mg/dL (Negative); Glucose,Urine (UA) Negative (Negative); Ketones,Urine Negative (Negative); Nitrite,Urine Negative (Negative); Protein,Urine Negative; Urine Color Straw (Yellow); Urine Specific Gravity 1.005 (1.001-1.035); Urine Urobilinogen < 2.0 EU/DL (0.2-1.0)
[2018-10-21 17:08] LABS: RBC,Urine 20 /HPF (0-4); Squamous Epithelial Cell,Urine Few /HPF (0-10); WBC,Urine 25 /HPF (0-6)
[2018-10-21] MEDS: LEVOFLOXACIN 250 MG TABLET PO SCH (18:33)
[2018-10-21] MEDS: INSULIN GLARGINE 100 UNIT/ML SUBCUT SCH (21:11)
[2018-10-22 05:51] LABS: Calcium 8.6 MG/DL (8.5-10.1); Osmolality,Calculated 280.5 MOS/KG (273-304); Potassium 3.4 MMOL/L (3.5-5.1)
[2018-10-22] MEDS ORDERED: ceFAZolin 1,000 MG VIAL IRRIG ONE (06:00)
[2018-10-22] MEDS ORDERED: ceFAZolin 1,000 MG in SYRINGE 1 EACH IV ONE (06:00)
[2018-10-22] MEDS ORDERED: HEPARIN/NACL 0.9% 2 UNITS/ML 1,000 ML IV ONE (06:49)
[2018-10-22] MEDS ORDERED: SODIUM BICARBONATE 2.4 MEQ/5 ML VIAL ONE (06:49)
[2018-10-22] MEDS ORDERED: LIDOCAINE 1% 20 ML VIAL ONE ×2 (06:49→08:15)
[2018-10-22] MEDS ORDERED: PROPOFOL 200 MG/20 ML VIAL IV ONE ×2 (06:58→10:24)
[2018-10-22] MEDS ORDERED: ETOMIDATE 40 MG/20 ML VIAL IV ONE ×2 (06:59→10:25)
[2018-10-22] MEDS ORDERED: SODIUM CHLORIDE 0.9% 100 ML IV ONE (06:59)
[2018-10-22] MEDS: ENOXAPARIN 40 MG/0.4 ML SYRINGE SUBCUT SCH (07:00)
[2018-10-22] MEDS ORDERED: POTASSIUM CHLORIDE RIDER 10 MEQ in PREMIX 1 EACH IV PRN (07:05)
[2018-10-22] MEDS ORDERED: diphenhydrAMINE CAP 25 MG CAPSULE PO ONE (07:05)
[2018-10-22] MEDS ORDERED: DIAZEPAM 5 MG TABLET PO ONE (07:05)
[2018-10-22] MEDS ORDERED: MAGNESIUM SULF RIDER 2 GM in PREMIX 1 EACH IV PRN (07:05)
[2018-10-22] MEDS: INSULIN LISPRO 100 UNIT/ML SUBCUT SCH ×4 (07:30→22:37)
[2018-10-22] MEDS ORDERED: ACETAMINOPHEN/CODEINE 300-30 MG TABLET PO PRN (08:06)
[2018-10-22] MEDS ORDERED: MORPHINE 4 MG/1 ML VIAL IV PRN (08:06)
[2018-10-22] MEDS ORDERED: NITROGLYCERIN SL 0.4 MG TABLET SL PRN (08:06)
[2018-10-22] MEDS ORDERED: ACETAMINOPHEN 325 MG TABLET PO PRN (08:06)
[2018-10-22] MEDS ORDERED: ZALEPLON 5 MG CAPSULE PO PRN (08:06)
[2018-10-22] MEDS ORDERED: ONDANSETRON 4 MG/2 ML VIAL IV PRN (08:06)
[2018-10-22] MEDS ORDERED: HEPARIN/NACL 0.9% 2 UNITS/ML 500 ML IV ONE (08:15)
[2018-10-22] MEDS ORDERED: ceFAZolin 1,000 MG VIAL ONE ×2 (08:15→08:16)
[2018-10-22] MEDS ORDERED: TISSUE ADHESIVE 1 EACH APPLICATOR TOP ONE (08:16)
[2018-10-22] MEDS ORDERED: SODIUM CHLORIDE 0.9% 1,000 ML IV SCH (08:30)
[2018-10-22] MEDS ORDERED: POTASSIUM CHLORIDE 20 MEQ TABLET PO ONE (10:09)
[2018-10-22] MEDS ORDERED: MIDAZOLAM 2 MG/2 ML VIAL ONE (10:24)
[2018-10-22] MEDS: ATORVASTATIN 10 MG TABLET PO SCH (11:16)
[2018-10-22] MEDS: ISOSORBIDE MONONITRATE 30 MG TABLET PO SCH (11:17)
[2018-10-22] MEDS: ASPIRIN EC 81 MG TABLET PO SCH (11:17)
[2018-10-22] MEDS: CARVEDILOL 6.25 MG TABLET PO SCH ×2 (11:17→23:27)
[2018-10-22] MEDS: FUROSEMIDE 40 MG/4 ML VIAL IV SCH (11:53)
[2018-10-22] MEDS: SACUBITRIL/VALSARTAN 49-51 MG TABLET PO SCH ×2 (11:53→23:27)
[2018-10-22 12:22] LABS: Basophils # 0.1 10*3/uL (0.0-0.2); Basophils % 0.7 % (0.0-0.8); Eosinophils # 0.1 10*3/uL (0.0-0.87); Eosinophils % 1.3 % (0.00-10.9); Hematocrit 33.6 VOL% (35.7-47.0); Hemoglobin 10.6 GM/DL (12.0-16.0); Immature Granulocytes % 0.3 %; Immature Granulocytes Absolute 0.02 #; Lymphocytes # 2.3 10*3/uL (1.4-4.0); Lymphocytes % 33.3 % (21.3-54.2); Mean Corpuscular HGB Conc 31.5 GM/DL (32-36); Mean Corpuscular Hemoglobin 27 PG (27-34); Mean Platelet Volume 11.3 FL (9.6-12.0); Monocytes # 0.5 10*3/uL (0.11-0.8); Monocytes % 6.8 % (1.7-12.7); Neutrophils % 57.6 % (38.7-73.9); Platelet Count 273 T/CUMM (130-400); White Blood Count 6.9 T/CUMM (4-12)
[2018-10-22] MEDS: FUROSEMIDE 40 MG TABLET PO SCH (15:35)
[2018-10-22] MEDS: LEVOFLOXACIN 250 MG TABLET PO SCH (17:17)
[2018-10-22] MEDS: INSULIN GLARGINE 100 UNIT/ML SUBCUT SCH (22:37)
[2018-10-23 04:33] LABS: Basophils % 0.6 % (0.0-0.8); Eosinophils # 0.4 10*3/uL (0.0-0.87); Eosinophils % 5.6 % (0.00-10.9); Hematocrit 31.2 VOL% (35.7-47.0); Hemoglobin 9.6 GM/DL (12.0-16.0); Immature Granulocytes % 0.4 %; Immature Granulocytes Absolute 0.03 #; Lymphocytes % 28.5 % (21.3-54.2); Mean Corpuscular HGB Conc 30.8 GM/DL (32-36); Mean Corpuscular Hemoglobin 26 PG (27-34); Mean Corpuscular Volume 83.9 FL (87-102); Mean Platelet Volume 11.2 FL (9.6-12.0); Monocytes # 0.5 10*3/uL (0.11-0.8); Monocytes % 7.7 % (1.7-12.7); Neutrophils % 57.2 % (38.7-73.9); Platelet Count 253 T/CUMM (130-400); Red Blood Count 3.72 MC/CUMM (3.8-5.5); Red Cell Distribution Width 14.1 % (9.3-17.3)
[2018-10-23 04:48] LABS: Calcium 8.1 MG/DL (8.5-10.1); Osmolality,Calculated 281.4 MOS/KG (273-304); Potassium 3.8 MMOL/L (3.5-5.1)
[2018-10-23] MEDS: SACUBITRIL/VALSARTAN 49-51 MG TABLET PO SCH (09:35)
[2018-10-23] MEDS: ATORVASTATIN 10 MG TABLET PO SCH (09:36)
[2018-10-23] MEDS: CARVEDILOL 6.25 MG TABLET PO SCH (09:36)
[2018-10-23] MEDS: ISOSORBIDE MONONITRATE 30 MG TABLET PO SCH (09:36)
[2018-10-23] MEDS: ASPIRIN EC 81 MG TABLET PO SCH (09:37)
[2018-10-23] MEDS: FUROSEMIDE 40 MG TABLET PO SCH (09:37)
[2018-10-23] MEDS: INSULIN LISPRO 100 UNIT/ML SUBCUT SCH (09:38)
[2018-10-23 12:15] VITALS: BP 130/60
== END 2018-10-23 12:08 | disposition home or self-care (01) | DRG 222 ==
LOC: EDBD → EDUNIT# → N.ED 03:04 → SUATTDRO 06:10 → N.EDINP 06:10 → N.CC 06:57 → N.TELEN 10-22 10:35
PROVIDERS: ADMIT Internal Medicine; ATTEND Internal Medicine Cardiovascular Disease
PROC: CLCCHCL (ICD-10-PCS; 2018-10-22 07:45)

== ENCOUNTER 2019-09-13 12:39 | Inpatient (IN) ==
[2019-09-13 15:16] LABS: Basophils # 0.1 10*3/uL (0.0-0.2); Basophils % 0.7 % (0.0-0.8); Eosinophils # 0.2 10*3/uL (0.0-0.87); Eosinophils % 2.7 % (0.00-10.9); Hematocrit 30.1 VOL% (35.7-47.0); Hemoglobin 9.1 GM/DL (12.0-16.0); Immature Granulocytes % 0.3 %; Immature Granulocytes Absolute 0.03 #; Lymphocytes # 1.9 10*3/uL (1.4-4.0); Lymphocytes % 21.5 % (21.3-54.2); Mean Corpuscular HGB Conc 30.2 GM/DL (32-36); Mean Platelet Volume 10.3 FL (9.6-12.0); Monocytes % 6.1 % (1.7-12.7); Neutrophils % 68.7 % (38.7-73.9); Platelet Count 316 T/CUMM (130-400); Red Blood Count 3.81 MC/CUMM (3.8-5.5); Red Cell Distribution Width 15.1 % (9.3-17.3); White Blood Count 8.9 T/CUMM (4-12)
[2019-09-13 15:32] LABS: Alanine Aminotransferase 18 U/L (13-56); Albumin 3.3 G/DL (3.4-5.0); Alkaline Phosphatase 73 U/L (45-117); Aspartate Amino Transferase 18 U/L (0-37); Bilirubin,Total < 0.39 MG/DL (0.2-1.0); Blood Urea Nitrogen 9 MG/DL (7-18); Calcium 8.5 MG/DL (8.5-10.1); Estimated Glom Filtration Rate 87 ML/MIN; Glucose 92 MG/DL (74-106); INR 3.1; Osmolality,Calculated 286.7 MOS/KG (273-304); Total Protein 7.6 G/DL (6.4-8.3); Troponin I 0.559 NG/ML (0.00-0.045)
[2019-09-13 15:57] LABS: PT Patient Result 33.6 SECS (9.6-12.2)
[2019-09-13] MEDS ORDERED: ASPIRIN 325 MG TABLET PO STA (16:01)
[2019-09-13] MEDS ORDERED: cefTRIAXone 1,000 MG in SODIUM CHLORIDE 0.9% 100 ML IV STA (16:01)
[2019-09-13] MEDS ORDERED: AZITHROMYCIN INJ 500 MG in SODIUM CHLORIDE 0.9% 250 ML IV STA (16:01)
[2019-09-13] MEDS ORDERED: FUROSEMIDE 40 MG/4 ML VIAL IV STA (16:11)
[2019-09-13] MEDS ORDERED: hydrALAZINE 20 MG/1 ML VIAL IV STA (16:11)
[2019-09-13] MEDS ORDERED: DEXTROSE 50% 25 GM/50 ML VIAL IV PRN ×2 (16:20→16:30)
[2019-09-13] MEDS ORDERED: GLUCAGON 1 MG VIAL IM PRN (16:20)
[2019-09-13] MEDS ORDERED: ALBUTEROL 2.5 MG/3 ML NEB RESP TX PRN (16:21)
[2019-09-13] MEDS ORDERED: hydrALAZINE 20 MG/1 ML VIAL IV PRN (16:21)
[2019-09-13] MEDS ORDERED: DOCUSATE SODIUM 100 MG CAPSULE PO PRN (16:30)
[2019-09-13] MEDS ORDERED: ACETAMINOPHEN 325 MG TABLET PO PRN (16:30)
[2019-09-13] MEDS ORDERED: PROMETHAZINE 25 MG TABLET PO PRN (16:30)
[2019-09-13] MEDS ORDERED: ZALEPLON 5 MG CAPSULE PO PRN (16:30)
[2019-09-13 17:40] LABS: Risk Ratio 2.31
[2019-09-13] MEDS: INSULIN LISPRO 100 UNIT/ML SUBCUT SCH ×2 (18:02→21:57)
[2019-09-13] MEDS: FUROSEMIDE 40 MG/4 ML VIAL IV SCH (18:26)
[2019-09-13] MEDS: ENOXAPARIN 40 MG/0.4 ML SYRINGE SUBCUT SCH (18:27)
[2019-09-13] MEDS: ALBUTEROL/IPRATROPIUM 3 ML NEB RESP TX SCH (19:36)
[2019-09-13] MEDS: hydrALAZINE 25 MG TABLET PO SCH (21:53)
[2019-09-13] MEDS: carvediloL 3.125 MG TABLET PO SCH (21:53)
[2019-09-13] MEDS: ATORVASTATIN 40 MG TABLET PO SCH (21:54)
[2019-09-14] MEDS: ALBUTEROL/IPRATROPIUM 3 ML NEB RESP TX SCH ×4 (00:18→19:45)
[2019-09-14] MEDS: guaiFENesin/DM ER 600-30 MG TABLET PO PRN ×2 (00:33→12:17)
[2019-09-14] MEDS: FUROSEMIDE 40 MG/4 ML VIAL IV SCH ×2 (05:20→15:58)
[2019-09-14 06:32] LABS: Basophils # 0.1 10*3/uL (0.0-0.2); Basophils % 0.9 % (0.0-0.8); Eosinophils # 0.4 10*3/uL (0.0-0.87); Eosinophils % 4.5 % (0.00-10.9); Immature Granulocytes % 0.3 %; Immature Granulocytes Absolute 0.02 #; Lymphocytes # 1.2 10*3/uL (1.4-4.0); Lymphocytes % 15.5 % (21.3-54.2); Mean Corpuscular Volume 78.1 FL (87-102); Mean Platelet Volume 10.4 FL (9.6-12.0); Monocytes % 6.1 % (1.7-12.7); Neutrophils % 72.7 % (38.7-73.9); Platelet Count 315 T/CUMM (130-400); Red Blood Count 3.84 MC/CUMM (3.8-5.5); Red Cell Distribution Width 15.3 % (9.3-17.3); White Blood Count 7.8 T/CUMM (4-12)
[2019-09-14 06:45] LABS: INR 2.3; PT Patient Result 25.3 SECS (9.6-12.2); Partial Thromboplastin Time 40.5 SECS (20.8-36.0)
[2019-09-14 06:51] LABS: Calcium 8.7 MG/DL (8.5-10.1)
[2019-09-14] MEDS: INSULIN LISPRO 100 UNIT/ML SUBCUT SCH ×4 (08:05→20:50)
[2019-09-14] MEDS: hydrALAZINE 25 MG TABLET PO SCH ×3 (09:13→20:49)
[2019-09-14] MEDS: PANTOPRAZOLE 40 MG TABLET PO SCH (09:14)
[2019-09-14] MEDS: ASPIRIN EC 81 MG TABLET PO SCH (09:14)
[2019-09-14] MEDS: carvediloL 3.125 MG TABLET PO SCH ×2 (09:14→20:49)
[2019-09-14] MEDS: cefTRIAXone 1,000 MG in SYRINGE 1 EACH IV SCH (09:16)
[2019-09-14] MEDS: AZITHROMYCIN INJ 500 MG in SODIUM CHLORIDE 0.9% 250 ML IV SCH (10:03)
[2019-09-14] MEDS: ENOXAPARIN 40 MG/0.4 ML SYRINGE SUBCUT SCH (15:58)
[2019-09-14] MEDS: ATORVASTATIN 40 MG TABLET PO SCH (20:49)
[2019-09-15] MEDS: ALBUTEROL/IPRATROPIUM 3 ML NEB RESP TX SCH ×4 (01:23→19:15)
[2019-09-15] MEDS: FUROSEMIDE 40 MG/4 ML VIAL IV SCH ×2 (03:35→16:04)
[2019-09-15 05:09] LABS: INR 1.7; PT Patient Result 18.6 SECS (9.6-12.2)
[2019-09-15 05:18] LABS: Calcium 8.6 MG/DL (8.5-10.1); Osmolality,Calculated 280.3 MOS/KG (273-304)
[2019-09-15] MEDS: INSULIN LISPRO 100 UNIT/ML SUBCUT SCH ×4 (09:24→20:51)
[2019-09-15] MEDS: PANTOPRAZOLE 40 MG TABLET PO SCH (09:27)
[2019-09-15] MEDS: ASPIRIN EC 81 MG TABLET PO SCH (09:27)
[2019-09-15] MEDS: carvediloL 3.125 MG TABLET PO SCH ×2 (09:27→21:45)
[2019-09-15] MEDS: hydrALAZINE 25 MG TABLET PO SCH ×3 (09:27→21:46)
[2019-09-15] MEDS: cefTRIAXone 1,000 MG in SYRINGE 1 EACH IV SCH (09:28)
[2019-09-15] MEDS: AZITHROMYCIN INJ 500 MG in SODIUM CHLORIDE 0.9% 250 ML IV SCH (09:30)
[2019-09-15] MEDS: ENOXAPARIN 40 MG/0.4 ML SYRINGE SUBCUT SCH (16:05)
[2019-09-15] MEDS: ISOSORBIDE DINITRATE 10 MG TABLET PO SCH (21:46)
[2019-09-15] MEDS: ATORVASTATIN 40 MG TABLET PO SCH (21:46)
[2019-09-16] MEDS: ALBUTEROL/IPRATROPIUM 3 ML NEB RESP TX SCH ×4 (00:55→20:13)
[2019-09-16] MEDS: FUROSEMIDE 40 MG/4 ML VIAL IV SCH ×2 (04:20→16:34)
[2019-09-16 04:55] LABS: INR 1.3; PT Patient Result 14.3 SECS (9.6-12.2)
[2019-09-16 05:09] LABS: Calcium 8.2 MG/DL (8.5-10.1)
[2019-09-16] MEDS: hydrALAZINE 25 MG TABLET PO SCH ×3 (09:40→22:06)
[2019-09-16] MEDS: AZITHROMYCIN INJ 500 MG in SODIUM CHLORIDE 0.9% 250 ML IV SCH (09:40)
[2019-09-16] MEDS: PANTOPRAZOLE 40 MG TABLET PO SCH (09:40)
[2019-09-16] MEDS: carvediloL 3.125 MG TABLET PO SCH ×2 (09:40→22:05)
[2019-09-16] MEDS: ASPIRIN EC 81 MG TABLET PO SCH (09:40)
[2019-09-16] MEDS: ISOSORBIDE DINITRATE 10 MG TABLET PO SCH ×3 (09:40→22:06)
[2019-09-16] MEDS: cefTRIAXone 1,000 MG in SYRINGE 1 EACH IV SCH (09:41)
[2019-09-16] MEDS: INSULIN LISPRO 100 UNIT/ML SUBCUT SCH ×4 (09:41→22:06)
[2019-09-16] MEDS: ENOXAPARIN 40 MG/0.4 ML SYRINGE SUBCUT SCH (16:13)
[2019-09-16 18:29] LABS: Total Protein,Pleural Fluid 4.9 G/DL
[2019-09-16 18:40] LABS: Lymphocytes,Pleural Fluid 94 %; Monocytes,Pleural Fluid 4 %; Neutrophils,Pleural Fluid 2 %
[2019-09-16 18:41] LABS: RBC,Pleural Fluid 6661 T/CUMM
[2019-09-16] MEDS: ATORVASTATIN 40 MG TABLET PO SCH (22:06)
[2019-09-17] MEDS: ALBUTEROL/IPRATROPIUM 3 ML NEB RESP TX SCH ×4 (01:04→19:13)
[2019-09-17] MEDS: FUROSEMIDE 40 MG/4 ML VIAL IV SCH ×2 (05:05→16:43)
[2019-09-17 05:28] LABS: INR 1.1; PT Patient Result 12.4 SECS (9.6-12.2)
[2019-09-17 05:45] LABS: Calcium 8.1 MG/DL (8.5-10.1)
[2019-09-17] MEDS: INSULIN LISPRO 100 UNIT/ML SUBCUT SCH ×4 (11:06→21:51)
[2019-09-17] MEDS: ASPIRIN EC 81 MG TABLET PO SCH (11:07)
[2019-09-17] MEDS: hydrALAZINE 25 MG TABLET PO SCH ×3 (11:07→21:52)
[2019-09-17] MEDS: PANTOPRAZOLE 40 MG TABLET PO SCH (11:07)
[2019-09-17] MEDS: carvediloL 3.125 MG TABLET PO SCH ×2 (11:09→21:52)
[2019-09-17] MEDS: ISOSORBIDE DINITRATE 10 MG TABLET PO SCH ×3 (11:10→21:53)
[2019-09-17] MEDS: cefTRIAXone 1,000 MG in SYRINGE 1 EACH IV SCH (11:11)
[2019-09-17] MEDS: AZITHROMYCIN INJ 500 MG in SODIUM CHLORIDE 0.9% 250 ML IV SCH (11:16)
[2019-09-17] MEDS: ENOXAPARIN 40 MG/0.4 ML SYRINGE SUBCUT SCH (16:42)
[2019-09-17] MEDS: ATORVASTATIN 40 MG TABLET PO SCH (21:52)
[2019-09-18] MEDS: ALBUTEROL/IPRATROPIUM 3 ML NEB RESP TX SCH ×3 (00:17→13:36)
[2019-09-18] MEDS: FUROSEMIDE 40 MG/4 ML VIAL IV SCH (04:30)
[2019-09-18 05:38] LABS: PT Patient Result 11.3 SECS (9.6-12.2)
[2019-09-18 05:48] LABS: Calcium 8.4 MG/DL (8.5-10.1); Osmolality,Calculated 283.3 MOS/KG (273-304)
[2019-09-18] MEDS: hydrALAZINE 25 MG TABLET PO SCH (11:14)
[2019-09-18] MEDS: INSULIN LISPRO 100 UNIT/ML SUBCUT SCH ×2 (11:14→12:37)
[2019-09-18] MEDS: carvediloL 3.125 MG TABLET PO SCH (11:14)
[2019-09-18] MEDS: ASPIRIN EC 81 MG TABLET PO SCH (11:14)
[2019-09-18] MEDS: PANTOPRAZOLE 40 MG TABLET PO SCH (11:15)
[2019-09-18] MEDS: ISOSORBIDE DINITRATE 10 MG TABLET PO SCH (11:15)
[2019-09-18] MEDS: cefTRIAXone 1,000 MG in SYRINGE 1 EACH IV SCH (11:16)
[2019-09-18] MEDS: AZITHROMYCIN INJ 500 MG in SODIUM CHLORIDE 0.9% 250 ML IV SCH (11:23)
[2019-09-18 12:35] VITALS: BP 107/65
[2019-09-18] MEDS ORDERED: DOXYCYCLINE HYCLATE 100 MG CAPSULE PO SCH (21:00)
== END 2019-09-18 14:30 | disposition home health service (06) | DRG 291 ==
LOC: N.ED 12:39 → N.EDINP 16:30 → N.TELEN 16:50
PROVIDERS: ADMIT Hospitalist; ATTEND Hospitalist